=== PATIENT | male | born 1950 | race African-American/Black ===

== ENCOUNTER 2022-01-22 12:34 | Emergency (ER) | payer MEDICARE, MEDICAID ==
[~2022-01-22] VITALS: Ht 175.3 cm; Wt 72.7 kg
[2022-01-22 12:35] VITALS: TEMP 98
[2022-01-22 13:56] LABS: BASO # 0.1 K/mm3 (0.0-0.2); BASO % 0.9 % (0.0-2.0); EOS # 0.1 K/mm3 (0.0-0.7); EOS % 1.2 % (0.0-4.0); GRAN # 4.2 K/mm3 (1.4-6.5); LYMPH # 1.9 K/mm3 (1.2-3.4); LYMPH % 27.6 % (20.0-51.0); MEAN CELL VOLUME 75 fl (80.0-100.0); MEAN CORPUSCULAR HEMOGLOBIN 24 pg (27-31); MEAN CORPUSCULAR HGB CONC 33 g/dl (33.0-37.0); MEAN PLATELET VOLUME 10.5 fl (7.4-10.4); MONO # 0.6 K/mm3 (0.1-0.6); PLATELET COUNT 219 K/mm3 (130-400); RED BLOOD COUNT 5.33 M/mm3 (4.20-5.60); REDCELL DISTRIBUTION WIDTH-CV 16.4 % (11.5-14.5)
[2022-01-22 14:14] LABS: ALANINE AMINOTRANSFERASE 11 U/L (0-55); ALBUMIN 4.1 gm/dL (3.4-4.8); ALKALINE PHOSPHATASE 67 U/L (40-150); ANION GAP 11 mmol/L (7-16); AST,SGOT 14 U/L (5-34); BILIRUBIN,TOTAL 1.4 mg/dL (0.2-1.2); BLOOD UREA NITROGEN 14 mg/dL (8-26); CARBON DIOXIDE 27 mmol/L (23-31); CHLORIDE 105 mmol/L (98-107); CREATININE, serum 1.08 mg/dL (0.72-1.25); GLUCOSE 92 mg/dL (70-99); SODIUM 143 mmol/L (136-145); TOTAL PROTEIN 7.4 gm/dL (6.2-8.1)
[2022-01-22 14:20] LABS: TROPONIN-I < 0.010 ng/mL (0.00-0.033)
[2022-01-22 16:34] VITALS: BP 137/86; PULSE 82
== END 2022-01-22 16:34 | disposition home or self-care (01) ==
LOC: COL.ER 12:34
PROVIDERS: Student in an Organized Health Care Education/Training Program
DX: R41.82 Altered mental status, unspecified (principal); F17.210 Nicotine dependence, cigarettes, uncomplicated

== ENCOUNTER 2023-11-03 21:31 | Observation (INO) | payer MEDICARE, MEDICAID ==
[~2023-11-03] VITALS: Wt 86.4 kg
[~2023-11-03 21:31] MED LIST: ANTIVERT 25MG25 MG PO; ASPIRIN 81M81 MG/TA2 PO; DEBROX OT; LIPITOR 40MG TA40 MG PO; LIPITOR20 MG PO; LOPRESSOR 225 MG/TAB PO; PLAVIX 75MG TAB75 MG PO; VALIUM 5MG T5 MG/TAB PO; ZOFRAN 4MG T4 MG/TAB PO
[2023-11-03 21:50] LABS: BASO # 0.1 K/mm3 (0.0-0.2); BASO % 0.8 % (0.0-2.0); EOS % 0.4 % (0.0-4.0); GRAN # 6.4 K/mm3 (1.4-6.5); GRAN % 61.7 % (42.2-75.2); HEMATOCRIT 44.6 % (42.0-52.0); HEMOGLOBIN 14.4 g/dl (13.5-18.0); LYMPH % 29.2 % (20.0-51.0); MEAN CELL VOLUME 74 fl (80.0-100.0); MEAN CORPUSCULAR HEMOGLOBIN 24 pg (27-31); MEAN CORPUSCULAR HGB CONC 32 g/dl (33.0-37.0); MEAN PLATELET VOLUME 10.2 fl (7.4-10.4); MONO # 0.8 K/mm3 (0.1-0.6); MONO % 7.7 % (1.7-9.3); PLATELET COUNT 222 K/mm3 (130-400); RED BLOOD COUNT 6.02 M/mm3 (4.20-5.60); REDCELL DISTRIBUTION WIDTH-CV 16.6 % (11.5-14.5)
[2023-11-03 21:59] LABS: INR 1.2 (0.8-3.0)
[2023-11-03 22:07] LABS: ALANINE AMINOTRANSFERASE 12 U/L (0-55); ALBUMIN 4.2 gm/dL (3.4-4.8); ALCOHOL(ethanol),MEDICAL 177 mg/dL (0-10); ALKALINE PHOSPHATASE 77 U/L (40-150); ANION GAP 17 mmol/L (7-16); AST,SGOT 16 U/L (5-34); BILIRUBIN,TOTAL 0.6 mg/dL (0.2-1.2); BLOOD UREA NITROGEN 10 mg/dL (8-26); CALCIUM 9.4 mg/dL (8.4-10.2); CARBON DIOXIDE 21 mmol/L (23-31); CHLORIDE 105 mmol/L (98-107); CREATINE KINASE 93 U/L (30-200); CREATININE, serum 1.05 mg/dL (0.72-1.25); GLUCOSE 94 mg/dL (70-99); POTASSIUM 3.9 mmol/L (3.5-4.5); SODIUM 143 mmol/L (136-145)
[2023-11-03 22:22] LABS: TROPONIN-I < 0.010 ng/mL (0.00-0.033)
[2023-11-04] VITALS (14 sets, daily range): BP systolic 109–131; BP diastolic 67–81; PULSE 53–77; TEMP 97.2–98.8
[2023-11-04 01:56] LABS: COLLECTION METHOD CLEAN CATCH
[2023-11-04 02:03] LABS: URINE APPEARANCE Clear (CLEAR/HAZY); URINE BLOOD 2+ (NEGATIVE); URINE COLOR Yellow (YELLOW); URINE GLUCOSE Negative (NEGATIVE); URINE KETONE Negative (NEGATIVE); URINE NITRATE Negative (NEGATIVE); URINE PROTEIN(semi-quant) Negative (NEGATIVE); URINE UROBILINOGEN 0.2 E.U/dL (0.2-1.0)
[2023-11-04 02:15] LABS: MUCOUS Present (NOT PRESENT); SQUAMOUS EPITHELIAL 0-2 /hpf (0-10); URINE BACTERIA Rare /hpf (NONE SEEN)
[2023-11-04 02:24] LABS: TRICYCLIC ANTIDEPRESS URINE NEGATIVE
[2023-11-04] MEDS ORDERED: ASPIRIN E.C. 8181 MG PO (03:09)
[2023-11-04] MEDS ORDERED: LOPRESSOR 225 MG/TAB PO (03:09)
[2023-11-04] MEDS ORDERED: NORVASC 5MG5 MG/TAB PO (03:09)
--- NOTE | 2023-11-04 04:40 | NUR ---
Pt did score 8 on the alcohol detox, but now that the pt is resting and not being bothered. He is resting with his eyes closed, even non labored breathing.
--- NOTE | 2023-11-04 06:10 | NUR ---
Pt has been resting with his eyes closed even non labored breathing. Pt does appear dizzy when I wake him as his eyes do not appear to focus. Pt is very polite and follows directions with no issues. Bed alarm on
[2023-11-04 06:29] LABS: BASO % 0.6 % (0.0-2.0); EOS # 0.1 K/mm3 (0.0-0.7); EOS % 1.1 % (0.0-4.0); GRAN # 4.4 K/mm3 (1.4-6.5); GRAN % 60.1 % (42.2-75.2); HEMATOCRIT 41.3 % (42.0-52.0); HEMOGLOBIN 13.1 g/dl (13.5-18.0); LYMPH # 1.9 K/mm3 (1.2-3.4); LYMPH % 26.8 % (20.0-51.0); MEAN CELL VOLUME 74 fl (80.0-100.0); MEAN CORPUSCULAR HEMOGLOBIN 24 pg (27-31); MEAN CORPUSCULAR HGB CONC 32 g/dl (33.0-37.0); MEAN PLATELET VOLUME 10.6 fl (7.4-10.4); MONO # 0.8 K/mm3 (0.1-0.6); MONO % 11.3 % (1.7-9.3); PLATELET COUNT 205 K/mm3 (130-400); RED BLOOD COUNT 5.58 M/mm3 (4.20-5.60); REDCELL DISTRIBUTION WIDTH-CV 15.8 % (11.5-14.5)
[2023-11-04 06:41] LABS: CALCIUM 8.8 mg/dL (8.4-10.2); CREATININE, serum 0.93 mg/dL (0.72-1.25); POTASSIUM 3.9 mmol/L (3.5-4.5)
[2023-11-04 06:51] LABS: INR 1.2 (0.8-3.0); PROTHROMBIN TIME 12.7 SECONDS (9.7-12.8)
[2023-11-04 06:54] LABS: PARTIAL THROMBOPLASTIN TIME 31.8 SECONDS (26.0-37.0)
--- NOTE | 2023-11-04 16:14 | NUR ---
Social Worke met with patient to discuss discharge planning. Patient lives alone in [place] at the [facility]. Patient sees Dr. Marti for primary care and obtains medications from [facility]. Patient utilizes the [facility] for transportation to appointments. Patient has a four wheeled walker at home and stated he is independent with ADLS. Patient stated he takes care of himself and cooks his own food. Patient does not have DPOA-HC but has been talking with a friend, Zeb Corado about this. Patient is not , has no children, no siblings, and his parents are . Patient stated he plans to return home at time of discharge and may need assistance with a ride home. Discharge Plan: Home
--- NOTE | 2023-11-04 19:30 | NUR ---
Patient has had a restful day. CIWA scores range from 0-4. Neuro checks WNL. Has been a/o x4, pleasent and cooperative. LR completed. Requires 1 assist for OOB activity due to being unsteady on feet. Fall precautions in place.
[2023-11-05] VITALS (7 sets, daily range): BP systolic 122–146; BP diastolic 76–85; PULSE 56–66; TEMP 97.5–98.3
--- NOTE | 2023-11-05 08:03 | NUR ---
Patient alert to self, situation, location, was one day off of date. Shift assessment complete. Patient denies pain or headache, denies dizziness or feeling light headed. Ambulating to bathroom from bed and back with no issues, gait steady. Skin is dry and intact. Patient in bed with call light in reach, all needs met at this time.
--- NOTE | 2023-11-05 10:29 | NUR ---
Discharge instructions discussed including follow-up appointment with PCP and scheduling, medications, and education packets. Patient verbalized understanding. Patient states he had tried a new alcohol with his friend and it was stronger than he thought, states he will stay away from it. IV discontinued to left AC with no complications, telemetry off. Patient has been ambulating self around room this morning with minimal difficulty, states he just needs to go slow. Patient slightly unsteady at time of discharge, he states he is just tired from getting dressed. Patient escorted out by staff via wheelchair to Uber ride at ER entrance.
--- NOTE | 2023-11-05 11:59 | NUR ---
SW met with patient for discharge planning and to set up preference for HH. Patient shared that he previously used [facility] and requested their services, SW would fax over HH referral for patient. Patient will be d/c home today with HH order. SW also support patient with getting [employer] arranged with House Nurse for transportation to his home. No further needs.
== END 2023-11-05 10:30 | disposition home health service (06) ==
LOC: COL.ER 21:31 → MEDICAL 11-04 03:41
PROVIDERS: Emergency Medicine; Nurse Practitioner Family; ADMIT Internal Medicine
DX: G93.40 Encephalopathy, unspecified (principal); F10.129 Alcohol abuse with intoxication, unspecified; Y90.6 Blood alcohol level of 120-199 mg/100 ml; F17.210 Nicotine dependence, cigarettes, uncomplicated; R53.1 Weakness; R51.9 Headache, unspecified; R26.89 Other abnormalities of gait and mobility; Y93.9 Activity, unspecified; E87.20 Acidosis, unspecified; W19.XXXA Unspecified fall, initial encounter; J96.01 Acute respiratory failure with hypoxia; I10 Essential (primary) hypertension; Z79.899 Other long term (current) drug therapy; E78.5 Hyperlipidemia, unspecified; Z79.82 Long term (current) use of aspirin; Z79.02 Long term (current) use of antithrombotics/antiplatelets; Z86.73 Personal history of transient ischemic attack (TIA), and cerebral infarction without residual deficits
CPT/HCPCS: G0378; J2060; J2405; J3411; J7030; J7120